=== PATIENT | male | born 1985 | race African-American/Black ===

== ENCOUNTER 2023-06-28 18:18 | Emergency (ER) | payer BC, SELFPAY ==
[2023-06-28 18:20] VITALS: BP 153/99; PULSE 69; RESP 20; TEMP 36.4; O2SAT 100
--- NOTE | 2023-06-28 18:31 | ED.GENADUL_ITS ---
Discharge Plan Disposition Patient Disposition: Home Condition: Stable Discharge Details Clinical Impression: Abdominal pain of unknown etiology Primary Care Provider: Unknown,Unknown ED Provider: Eb Egan Home Meds and New Rx's Prescriptions: No Action No Known Home Meds Discharge Instructions Instructions: Abdominal Pain (ED), Enteritis (ED) Additional Instructions: You were seen in the Emergency Department for your abdominal pain for the past couple days- Your exam is re-assuring and you have no focal tenderness. Your laboratory work-up shows no acute abnormality, no elevation of white blood cells- which means VERY LOW suspicion for any significant infection. Your markers of inflammation are negative, your kidney and liver and pancreas function is normal. I do not suspect we need a CT scan at today's visit with your re-assuring labs and physical exam. Please monitor your symptoms closely- likely you have a viral stomach illness which should resolve within 5-7 days. Please follow with primary care, I have placed you on a list to establish care with a regular doctor in the area that can handle non-Emergent issues. Take [id number] medicines like Tylenol and ibuprofen for pain/fever as needed. Return to the Emergency Department for any significant worsening abdominal pain, intractable nausea/vomiting, complete constipation, black/bloody stools, urinary retention, fever. Referrals: [facility] [Provider Group] [facility] [Provider Group] HPI General Date/Time Provider Initiated Documentation: 06/28/23 18:19 . HPI Narrative: 38 year-old male presents to ED today by POV/ambulating with a chief complaint of abdominal pain, with nausea, with onset Tuesday or Tuesday, possibly linked to food poisoning. Quality described as generalized abdominal cramping, fairly constant, but not tender when he pushes on his abdomen, no radiation to vomiting, flank pain, dysuria, diarrhea, black/bloody stools, fever, cough, shortness of breath, headache. Severity is described as mild to moderate. Palliating factors include nothing specific attempted- has been trying to stay hydrated, and not eat undercooked food. Provoking factors include nothing specific. Patient not anticoagulated. Related Data Home Medications Medication Instructions Recorded Confirmed Unknown [No Known Home Meds] 06/28/23 06/28/23 Allergies Allergy/AdvReac Type Severity Reaction Status Date / Time No Known Allergies Allergy Unverified 06/28/23 18:20 General Stated Complaint: Abd Prob CASIE: 3 Review of Systems All systems reviewed & are unremarkable except as noted in HPI and below Exam Narrative Exam Narrative: GENERAL APPEARANCE: Well-nourished, non-toxic, awake and alert, atraumatic, no acute distress. SKIN: Warm, pink, dry, intact, without rashes/lesions/ulcerations. HEAD: Normocephalic, atraumatic, normal hair distribution for gender/age. EYES: Pupils PERRLA, EOMs intact without nystagmus, normal conjunctiva, no exudates on lids/lashes. ENT: Nares patent, no circumoral cyanosis, no facial swelling NECK: Supple, trachea midline, painless cervical ROM. LUNGS/CHEST: Non-labored respirations, normal A/P diameter, symmetrical expansion, no chest wall deformity HEART (CV/PV): No peripheral edema, no JVD, L radial pulse 2+, regular rate. ABDOMEN: Soft, non-distended, no guarding, no focal tenderness to entire abdomen, no CVA tenderness to percussion. MSK: Normal ROM, no swelling/deformity to bilateral UEs or LEs, moving all extremities without weakness, no cyanosis, spine midline without tenderness, normal curvature. NEURO: Mental Status AAOx4 - alert to person, place, time, events No facial droop, no forehead involvement. Motor: No focal weakness - strength 5/5 in bilateral UEs and LEs, proximal and distal, symmetric. Sensory: sensation intact to light touch globally. Gait normal: patient ambulated without ataxia into ED room. PSYCH: euthymic, cooperative, pleasant, appropriate speech Course Vital Signs Vital signs: Vital Signs Temperature 36.4 C L 06/28/23 18:20 Pulse 69 06/28/23 18:20 Respiratory Rate 20 06/28/23 18:20 Blood Pressure 153/99 H 06/28/23 18:20 Pulse Oximetry 100 06/28/23 18:20 Temperature 36.4 C L 06/28/23 18:20 Pulse 69 06/28/23 18:20 Respiratory Rate 20 06/28/23 18:20 Blood Pressure 153/99 H 06/28/23 18:20 Pulse Oximetry 100 06/28/23 18:20 Oxygen Delivery Method Room Air 06/28/23 18:20 Oxygen Flow Rate 0 06/28/23 18:20 Pain Level 0 06/28/23 18:20 Medical Decision Making This dictation utilizes [id number] dictation software and may contain unedited grammatical errors. 38 y/o M presents to ED today with a chief complaint of abdominal pain, upset stomach, with nausea without vomiting- possibly had some bad food, denies fever, no focal tenderness when he palpates his own abdomen, denies bowel/urinary changes. Patient is passing gas, having regular BMs since onset on Tuesday/Tuesday. Patients' medical history: negative, otherwise healthy- denies prior abdominal surgeries. Family and social history: eats well, exercises regularly. Pertinent exam findings / vital signs include non-tender abdomen, stable vitals, no respiratory distress. Differential / pathologies of concern include gastroenteritis, diverticulitis, enteritis, gastritis, viral syndrome. Diagnostic studies of: -CBC, CMP, Lipase, Lactate, Magnesium, UA, CRP/ESR. -CBC shows no leukocytosis, no anemia -CMP benign, mild elev AST 45, just above normal -Lipase WNL -Lactate negative -Magnesium WNL -CRP/ESR negative -UA shows no UTI, no proteinuria Interventions of: -1L IV LR, 1g IV APAP, 15mg IV Ketorlac, 4mg IV Zofran. ED Course/Assessment/Plan: 38-year-old male presents with generalized abdominal pain since Tuesday or Tuesday, possibly food poisoning. The patient states he is nontender and demonstrates this by vigorously slapping himself and pressing on his belly all over without any pain. His laboratory workup is completely benign, do not suspect anything beyond possible food related viral gastroenteritis. I counseled him that he would likely improve, he felt better with Zofran and Tylenol and Toradol, I counseled him on [id number] acetaminophen and ibuprofen use for pain as needed and to stay well-hydrated. I did arrange for him to establish primary care in the area. Strict return criteria for any severe worsening of abdominal pain especially with fever, intractable nausea or vomiting. Findings not consistent with peritoneal abdomen, SBO, sepsis, colitis/diverticulitis- neg inflammatory markers, non-tender, no major electrolyte abnormalities. Disposition of Abdominal Pain of Unknown Etiology. Patient verbalized understanding of the plan and return to ED criteria and engaged in shared decision making. Lab Data Lab results reviewed: Yes I reviewed the patient's lab results. Labs: Laboratory Tests Range/Units 06/28/23 06/28/23 18:30 19:40 WBC (4.4-10.8) 10^3/uL 4.13 L RBC (4.36-5.78) 10^6/uL 4.94 Hgb (13.5-17.5) g/dL 15.4 Hct (40.0-50.0) % 45.3 MCV (80-95) fL 92 MCH (27.0-33.0) pg 31.2 MCHC (32.0-36.0) % 34.0 RDW (11.8-14.1) % 11.3 L Plt Count (130-400) 10^3/uL 235 MPV (8.0-11.0) fL 10.4 Immature Gran % 0.0 Neutrophils % 43.1 Lymphocytes % 39.7 Monocytes % 12.6 Eosinophils % 3.9 Basophils % 0.7 Nucleated RBC % (0.0-0.3) % 0.0 Absolute Neutrophils (1.2-6.7) 10^3/uL 1.78 Absolute Lymphocytes (1.2-3.4) 10^3/uL 1.64 Absolute Monocytes (0.1-0.8) 10^3/uL 0.52 Absolute Eosinophils (0.0-0.7) 10^3/uL 0.16 Absolute Basophils (0.0-0.2) 10^3/uL 0.03 ESR (0-15) mm/hr < 1 VBG Lactate (0.6-1.4) mmol/L 1.2 Sodium (136-145) mmol/L 141 Potassium (3.5-5.1) mmol/L 3.5 Chloride (98-107) mmol/L 104 Carbon Dioxide (21.0-32.0) mmol/L 31.0 Anion Gap (3-11) mmol/L 6.0 BUN (7-18) mg/dL 12 Creatinine (0.70-1.30) mg/dL 1.3 Est GFR (CKD-EPI 2020) (mL/min/1.73m2) 72.11 Glucose (74-106) mg/dL 104 Calcium (8.5-10.1) mg/dL 8.9 Magnesium (1.8-2.4) mg/dL 2.2 Total Bilirubin (0.2-1.0) mg/dL 0.9 AST (15-37) U/L 45 H ALT (16-63) U/L 49 Alkaline Phosphatase (46-116) U/L 73 C-Reactive Protein (<or=0.5) mg/dL < 0.50 Total Protein (6.4-8.2) g/dL 8.3 H Albumin (3.4-5.0) g/dL 4.4 Lipase (16-77) U/L 67 Urine Color (Yellow) Yellow Urine Clarity (Clear) Clear Urine pH (5-8) 7.5 Ur Specific [place] (1.005-1.025) 1.020 Urine Protein (Neg-Trace) mg/dL Negative Urine Ketones (Negative) mg/dL Negative Urine Blood (Negative) Negative Urine Nitrite (Negative) Negative Urine Bilirubin (Negative) Negative Urine Urobilinogen (Up to 0.2) mg/dL 0.2 Ur Leukocyte Esterase (Negative) Negative Urine Glucose (Negative) mg/dL Negative Quality:SDOH Health Related Social Needs: No Data to Display PFSH All Active Problems (Updated 06/28/23 @ 19:23 by MCKENZIE Corea) Abdominal pain of unknown etiology (Acute) Social History Smoking/Tobacco Use Status: Never Smoking risk assessment performed?: Yes Substance use type: does not use Housing: house Do you feel safe at home: Yes Do you feel safe in your relationship?: Yes
[2023-06-28 18:56] LABS: Lactate 1.2 mmol/L (0.6-1.4)
[2023-06-28 18:59] LABS: Absolute Basophil Count 0.03 10^3/uL (0.0-0.2); Absolute Eosinophil Count 0.16 10^3/uL (0.0-0.7); Absolute Lymphocyte Count 1.64 10^3/uL (1.2-3.4); Absolute Monocyte Count 0.52 10^3/uL (0.1-0.8); Absolute Neutrophil Count 1.78 10^3/uL (1.2-6.7); Basophils % 0.7; Eosinophils % 3.9; HCT 45.3 % (40.0-50.0); HGB 15.4 g/dL (13.5-17.5); Lymphocytes % 39.7; MCH 31.2 pg (27.0-33.0); MCV 92 fL (80-95); MPV 10.4 fL (8.0-11.0); Monocytes % 12.6; Neutrophils % 43.1; Platelet Count 235 10^3/uL (130-400); RBC 4.94 10^6/uL (4.36-5.78); RDW 11.3 % (11.8-14.1); WBC 4.13 10^3/uL (4.4-10.8)
[2023-06-28 19:01] LABS: ESR < 1 mm/hr (0-15)
[2023-06-28] MEDS: Ondansetron 4 MG/2 ML VIAL IVP (19:14)
[2023-06-28] MEDS: ACETAMINOPHEN 1,000 MG/100 ML BTL 400 MG IVPB (19:14)
[2023-06-28] MEDS: Ketorolac 15 MG/ML VIAL IVP (19:14)
[2023-06-28 19:15] LABS: ALT 49 U/L (16-63); AST 45 U/L (15-37); Albumin 4.4 g/dL (3.4-5.0); Alkaline Phosphatase 73 U/L (46-116); BUN 12 mg/dL (7-18); Bilirubin, Total 0.9 mg/dL (0.2-1.0); CREATININE 1.3 mg/dL (0.70-1.30); Calcium 8.9 mg/dL (8.5-10.1); Chloride 104 mmol/L (98-107); Estimated GFR 72.11 (mL/min/1.73m2); Glucose 104 mg/dL (74-106); Lipase 67 U/L (16-77); Magnesium 2.2 mg/dL (1.8-2.4); Potassium 3.5 mmol/L (3.5-5.1); Sodium 141 mmol/L (136-145); Total Protein 8.3 g/dL (6.4-8.2)
[2023-06-28] MEDS: Lactated Ringers 1,000 ML 1000 ML IV (19:15)
[2023-06-28 19:16] LABS: C-Reactive Protein < 0.50 mg/dL (<or=0.5)
[2023-06-28 20:00] LABS: Bilirubin Negative (Negative); Blood Negative (Negative); Clarity Clear (Clear); Glucose Negative (Negative); Ketones Negative (Negative); Leukocyte Esterase Negative (Negative); Nitrite Negative (Negative); Urobilinogen 0.2 mg/dL (Up to 0.2); pH 7.5 (5-8)
--- NOTE | 2023-06-28 22:59 | NUR.NOTE ---
Pt placed on care management referral list to establish primary care for pt to be seen as soon as possible per MCKENZIE Egan.
== END 2023-06-28 19:52 | disposition home or self-care (01) ==
LOC: ER 20:15
PROVIDERS: Emergency Provider Physician Assistant
DX: R10.9 Unspecified abdominal pain (principal); R11.2 Nausea with vomiting, unspecified
CPT/HCPCS: 80053; 83690; 85652; 96361; 96374; 96375; 99284; 81003; 83605; 83735; 85025; 86140; 99283; J0131; J1885; J2405

== ENCOUNTER 2023-07-14 16:39 | Outpatient (REF) | payer BC, SELFPAY ==
[2023-07-14 14:45] LABS: Abs Immature Grans 0.02 10^3/uL (0.0-0.06); Absolute Basophil Count 0.03 10^3/uL (0.0-0.2); Absolute Eosinophil Count 0.13 10^3/uL (0.0-0.7); Absolute Lymphocyte Count 1.08 10^3/uL (1.2-3.4); Absolute Neutrophil Count 1.59 10^3/uL (1.2-6.7); Basophils % 0.9; HCT 43.6 % (40.0-50.0); HGB 15.1 g/dL (13.5-17.5); Immature Grans % 0.6; Lymphocytes % 33.2; MCH 30.7 pg (27.0-33.0); MCHC 34.6 % (32.0-36.0); MCV 89 fL (80-95); MPV 11.5 fL (8.0-11.0); Monocytes % 12.3; Platelet Count 197 10^3/uL (130-400); RBC 4.92 10^6/uL (4.36-5.78); RDW 11.4 % (11.8-14.1); WBC 3.25 10^3/uL (4.4-10.8)
[2023-07-14 14:59] LABS: ALT 65 U/L (16-63); AST 32 U/L (15-37); Albumin 4.3 g/dL (3.4-5.0); Alkaline Phosphatase 71 U/L (46-116); Anion Gap 8.7 mmol/L (3-11); BUN 12 mg/dL (7-18); Bilirubin, Total 0.8 mg/dL (0.2-1.0); CO2 29.3 mmol/L (21.0-32.0); CREATININE 1.3 mg/dL (0.70-1.30); Calcium 9.5 mg/dL (8.5-10.1); Chloride 104 mmol/L (98-107); Estimated GFR 72.11 (mL/min/1.73m2); Glucose 89 mg/dL (74-106); Potassium 4.3 mmol/L (3.5-5.1); Sodium 142 mmol/L (136-145); Total Protein 7.7 g/dL (6.4-8.2)
[2023-07-19 13:09] LABS: Helicobacter pylori Ag, Feces Positive (Negative)
== END 2023-07-14 16:40 | disposition home or self-care (01) ==
LOC: NCHCN 16:39
PROVIDERS: Referring Provider Family Medicine; Visit Provider Family Medicine
DX: K29.70 Gastritis, unspecified, without bleeding (principal)
CPT/HCPCS: 80053; 87338; 85025

== ENCOUNTER 2024-02-24 16:11 | Outpatient (CLI) | payer BC, SELFPAY ==
--- OUTSIDE RECORDS SUMMARY | 2024-02-24 16:16 | XMS_ITS | Encounter Summary ---
Author Organization [facility] Address [facility] [place] [address] Care Team Providers Care Conventions Reservationist Name Role Phone Unavailable Primary Care Provider Unavailabl e Encounter Details Date Type Department Care Team (Latest Contact Info) Description 12/22/2023 Travel Social History Tobacco Use Types Packs/Day Years Used Date Smoking Tobacco: Never Assessed Sex and Gender Information Value Date Recorded Sex Assigned at Not on file Gender Identity Not on file Sexual Orientation Not on file documented as of this encounter Plan of Treatment Upcoming Encounters Date Type Department Care Team (Late st Contact Info) Description 03/26/2024 1:20 PM EST Office Visit Dermatology at [facility] [address] [place] [address] Konrad Brannon MD [facility] [address] [place] [address] documented as of this encounter Visit Diagnoses Not on filedocumented in this encounter
--- OUTSIDE RECORDS SUMMARY | 2024-02-24 16:16 | XMS_ITS | Clinical Summary ---
Author Organization [facility] Address [address] [place] [address] Care Team Providers Care Cash Processing Specialist Name Role Phone Unavailable Primary Care Provider Unavailabl e Social History Tobacco Use Types Packs/Day Years Used Date Smoking Tobacco: Never Assessed Sex and Gender Information Value Date Recorded Sex Assigned at Not on file Legal Sex Male 1:01 EDT Gender Identity Not on file Sexual Orientation Not on file Plan of Treatment Health Maintenance Due Date Last Done Comments Hepatitis C Screen 1985 Hepatitis B Vaccine (1 of 3 - 19+ 3-dose series) 03/10 COVID-19 Vaccine ( season) 2023
--- OUTSIDE RECORDS SUMMARY | 2024-02-24 16:16 | XMS_ITS | Encounter Summary ---
Author Organization [facility] Address [facility] [place] [address] Care Team Providers Care Math And Science Instructor Name Role Phone Unavailable Primary Care Provider Unavailabl e Reason for Visit * Consultation (Routine) - Closed Specialty Diagnoses / Procedures Referred By Contbrandon t Referred To Contact Dermatology Diagnoses Pruritus, unspecified Donovan Garcia MD [address] [place] [id number] [facility] [address] [place] [address] Referral ID Status Reason Start Date Expiration Date Visits Re quested Visits Authorized [id number] Closed 11/07/2023 11/06/2024 1 1 Encounter Details Date Type Department Care Team (Late st Contact Info) Description 12/22/2023 9:20 AM EDT Office Visit Dermatology at [facility] [address] [place] [address] Konrad Brannon MD [facility] [place] [address] Pruritus Social History Tobacco Use Types Packs/Day Years Used Date Smoking Tobacco: Never Assessed Sex and Gender Information Value Date Recorded Sex Assigned at Not on file Gender Identity Not on file Sexual Orientation Not on file documented as of this encounter Progress Notes * Konrad Brannon MD - 12/22/2023 9:20 AM EDT Images from the original note were not included. DEPARTMENT OF DERMATOLOGY Medical Dermatology Clinic Provider: Konrad Brannon MD Patient's preferred name Tristan Preferred contact method for results [x]Phone []myD-H []Letter Detailed phone message OK? Yes Are there any other people with whom we may discuss your care? PCP Past Medical History Date, location, treatment Melanoma N Dysplastic nevi N SCC N BCC N AKs N UV Exposure & Protection N Other relevant past medical history Family History Details Melanoma N NMSC N Other relevant family history N Social History Occupation: Hobbies: Other: PRE-PROCEDURE SCREENING Details Allergy to lidocaine, epinephrine, Dermabond, chlorhexidine, or adhesives N Bleeding disorder or blood thinners N Pacemaker, defibrillator, deep brain stimulator, cochlear implant N History of Present Illness: Tristan Velez is a 38 y.o. Patient is new and self- referred to the clinicfor Pruritus. Has been dealing with it since june from head to toe, is activated with heat. Tried an OTC anti histamine which didn't help. Brother is a doctor in [place] and suggested he uses Vaseline which has helped some. Going to a colder area also helps. Medications: Reviewed in eD-H Allergies: Reviewed in eD-H Skin Examination: Focused skin examination of the Trunk, extremities, and feet was normal with the exception of the findings below. Assessment/Plan #. Pruritus sans dermatitis - no overlying skin disease other than xerosis and no excoriatiosn - Patient endorses intense itching which impairs quality of life - Heat is main trigger but otherwise sporadic - Only improves with cold air - Discussed possible internal causes of pruritus, such as anemia, thyroid issues, lymphoma. Will check labs to rule these out. - Recommended AmLactin Rapid Relief lotion twice daily. - Consider Gabapentin in the future - Lab orders today: CBC, CMP, TSH Seborrheic dermatitis - hyperpigmented patches on the bilateral cheeks and nasolabial folds. -asymptomatic -advised this is a chronic condition 2nd to [place] that can be controlled. If worsens or becomes more symptomatic can offer alternative treatments RX:Amlactin as above Other: OTC skin products discussed RTC: 2-3 mo f/u pending labs []Note routed to casing runner []Recall placed in scheduling system []Appointment scheduled at checkout Scribe attestation: DEYA Spivey has performed the documentation for this encounter in the presence of and acting as a scribe for Konrad Brannon MD. I performed the above scribed service and agree with the accuracy of the documentation in this encounter. Reviewed and signed by: Konrad Brannon MD Dermatology [facility] Patient seen and evaluated with staff otr owner operator truck driver: Mabel Govea MD Dermatology [facility] * Konrad Brannon MD - 12/22/2023 9:20 AM EDT I discussed results of laboratory testing with Tristan over the phone. CBC and CMP within normal limits. TSH normal as well. Likely related to xerosis. Discussed AmLactin 12% lotion which can be used twice daily for maintenance of the skin barrier. Planned follow-up 03/26/24. Encouraged to call if anyquestions arise * Mabel Govea MD - 12/22/2023 9:20 AM EDT I directly supervised Konrad Brannon MD in the care of this Dermatology patient in person. I saw and evaluated this patient with Konrad Brannon MD. Konrad Brannon MD presented the history and physical exam details to me, then we saw the patient together, and I confirmed these findings. I agree with details as written. My physical examination confirms Konrad Brannon MD's findings. The assessment and plan were formulated in discussion with me at the time of visit, and I agree with them as documented. Mabel Govea MD Staff Freight Service Inspector Department of Dermatology [facility] documented in this encounter Plan of Treatment Upcoming Encounters Date Type Department Care Team (Late st Contact Info) Description 03/26/2024 1:20 PM EST Office Visit Dermatology at [address] [place] [address] Konrad Brannon MD [facility] [address] [address] documented as of this encounter Procedures Procedure Name Priority Date/Time Associated Diagnosis Comments CBC (WITH DIFF) Routine 12/22/2023 10:33 AM EDT Pruritus TSH Routine 12/22/2023 10:33 AM EDT Pruritus COMPREHENSIVE METABOLIC PANEL Routine 12/22/2023 10:33 AM EDT Pruritus documented in this encounter Results * TSH (12/22/2023 10:33 AM EDT) Pathologist [facility] Thyroid Stimulating Hormone 1.12 0.27 - 4.20 mcIU/mL 12/22/2023 2:06 PM EDT [facility] Blood VENOUS BLOOD SPECIMEN / Unknown Venipuncture / Unknown 12/22/2023 10:33 AM EDT 12/22/2023 10:33 AM EDT Mabel Govea MD CHEMISTRY ORDERABLES [facility] [place] [address] * Comprehensive metabolic panel Non-fasting (12/22/2023 10:33 AM EDT) Glucose 99 65 - 199 mg/dL 12/22/2023 2:06 PM EDT [facility] Comment:Glucose Concentratio n >=200 mg/dL plus symptoms is consistent with Diabetes Mellitus. Blood Urea Nitrogen 13 10 - 20 mg/dL 12/22/2023 2:06 PM EDT [facility] Creatinine 1.35 0.80 - 1.50 mg/dL 12/22/2023 2:06 PM EDT [facility] Sodium 137 135 - 145 mMol/L 12/22/2023 2:06 PM [facility] Potassium 4.5 3.5 - 5.0 mMol/L 12/22/2023 2:06 PM [facility] Chloride 101 98 - 107 mMol/L 12/22/2023 2:06 PM [facility] Carbon Dioxide 27 22 - 31 mMol/L 12/22/2023 2:06 PM [facility] Anion Gap 9 5 - 15 mMol/L 12/22/2023 2:06 PM [facility] Calcium 9.7 8.5 - 10.5 mg/dL 12/22/2023 2:06 PM [facility] Protein, Total 8.0 6.1 - 8.0 g/dL 12/22/2023 2:06 PM [facility] Albumin 5.0 3.2 - 5.2 g/dL 12/22/2023 2:06 PM [facility] Aspartate Aminotransferase 36 <=39 unit/L 12/22/2023 2:06 PM [facility] Alanine Aminotransferase 46 0 - 55 unit/L 12/22/2023 2:06 PM [facility] Alkaline Phosphatase 63 40 - 130 unit/L 12/22/2023 2:06 PM [facility] Bilirubin, Total 0.8 <=1.3 mg/dL 12/22/2023 2:06 PM [facility] Est Glomerular Filtration Rate - Male 69 mL/min/1. 73 m?? 12/22/2023 2:06 PM [facility] Comment: This patient's estimated GFR was calculated using the 2020 CKD-EPI equation. The estimated GFR can vary from the measured GFR by up to 30% in the absence of rapidly changing kidney function. Assessment of the estimated GFR is not appropriate when creatinine concentrations are rapidly changing. For clinical situations in which a more precise estimate of GFR is necessary, consider alternative methods of GFR estimation such as a 24-hour urine creatinine clearance. Assignment of CKD stage 1 - 5 for patients with an eGFR near the transition point between stages may be based on clinical assessment of muscle mass and symptoms in addition to eGFR. Link: eGFR Calculator [employer] Fasting Status No 12/22/2023 2:06 PM EDT [facility] Blood VENOUS BLOOD SPECIMEN / Unknown Venipuncture / Unknown 12/22/2023 10:33 AM EDT 12/22/2023 10:33 AM EDT Mabel Govea MD CHEMISTRY ORDERABLES [facility] [place] [address] * (ABNORMAL) CBC (with Diff) (12/22/2023 10:33 AM EDT) White Blood Cell 3.91(L) 4.00 - 9.50 x10(3)/mc L 12/22/2023 1:40 PM EDT [facility] Red Blood Cell 4.96 4.58 - 5.54 x10(6)/mc L 12/22/2023 1:40 PM EDT [facility] Hemoglobin 15.3 13.7 - 16.5 g/dL 12/22/2023 1:40 PM EDT [facility] Hematocrit 45.5 40.5 - 48.5 % 12/22/2023 1:40 PM EDT [facility] Mean Cell Volume 91.7 82.9 - 93.1 fL 12/22/2023 1:40 PM EDT [facility] Mean Cell Hemoglobin 30.8 27.5 - 32.1 pg 12/22/2023 1:40 PM EDT [facility] Mean Cell Hemoglobin Concentration 33.6 32.0 - 35.7 g/dL 12/22/2023 1:40 PM EDT [facility] Platelet 210 145 - 357 x10(3)/mc L 12/22/2023 1:40 PM EDT [facility] Mean Platelet Volume 11.2 7.6 - 12.9 fL 12/22/2023 1:40 PM EDT [facility] RDW Standard Deviation 39.5 36.0 - 45.0 fL 12/22/2023 1:40 PM [facility] RDW coefficient of variation 11.8 11.4 - 13.8 % 12/22/2023 1:40 PM [facility] NRBC% auto 0.0 % 12/22/2023 1:40 PM [facility] NRBC Absolute 0.00 0.00 - 0.00 x10(3)/mc L 12/22/2023 1:[facility] Neutrophil % 51.9 % 12/22/2023 1:40 PM [facility] Neutrophil Absolute (ANC) - Automated 2.03 1.70 - 6.10 x10(3)/mc L 12/22/2023 1:40 PM [facility] Lymph % 30.9 % 12/22/2023 1:40 PM [facility] Lymph Absolute 1.21 0.90 - 3.20 x10(3)/mc L 12/22/2023 1:40 PM [facility] Monocyte % 12.3 % 12/22/2023 1:40 PM [facility] Monocyte Absolute 0.48 0.30 - 0.90 x10(3)/mc L 12/22/2023 1:40 PM [facility] Eos % 3.8 % 12/22/2023 1:40 PM [facility] Eos Absolute 0.15 0.00 - 0.40 x10(3)/mc L 12/22/2023 1:40 PM [facility] Basophil % 0.8 % 12/22/2023 1:40 PM [facility] Baso Absolute 0.03 0.00 - 0.10 x10(3)/mc L 12/22/2023 1:40 PM [facility] Immature Gran % 0.3 % 1:40 PM [facility] Immature Gran Absolute 0.01 0.00 - 0.04 x10(3)/mc L 12/22/2023 1:40 PM EDT [facility] Blood VENOUS BLOOD SPECIMEN / Unknown Venipuncture / Unknown 12/22/2023 10:33 AM EDT 12/22/2023 10:33 AM EDT Mabel Govea MD HEMATOLOGY ORDERABLE S [facility] [place] [address] documented in this encounter Visit Diagnoses Diagnosis Pruritus Unspecified pruritic disorder documented in this encounter
--- OUTSIDE RECORDS SUMMARY | 2024-02-24 16:17 | XMS_ITS | Referral Summary ---
Author Organization [facility] Address [address] [place] [address] Care Team Providers Care Air Marshal Name Role Phone Unavailable Primary Care Provider Unavailabl e Social History Tobacco Use Types Packs/Day Years Used Date Smoking Tobacco: Never Assessed Sex and Gender Information Value Date Recorded Sex Assigned at Not on file Legal Sex Male 1:01 EDT Gender Identity Not on file Sexual Orientation Not on file Plan of Treatment Not on file
--- OUTSIDE RECORDS SUMMARY | 2024-02-24 16:17 | XMS_ITS | Encounter Summary ---
Author Organization [facility] Address [address] [place] [address] Care Team Providers Care Construction Helper Name Role Phone Unavailable Primary Care Provider Unavailabl e Encounter Details Date Type Department Care Team (Late st Contact Info) Description 07/15/2023 Lab Requisition [facility] Pathology & Laboratory Medicine - [facility] [address], [place] [id number] Outr Resulting Lab, Provider Social History Tobacco Use Types Packs/Day Years Used Date Smoking Tobacco: Never Assessed Sex and Gender Information Value Date Recorded Sex Assigned at Not on file Legal Sex Male 1:01 EDT Gender Identity Not on file Sexual Orientation Not on file documented as of this encounter Plan of Treatment Not on file documented as of this encounter Procedures Procedure Name Priority Date/Time Associated Diagnosis Comments H. PYLORI ANTIGEN Routine 07/14/2023 14: 23 EDT documented in this encounter Results * (ABNORMAL) H. PYLORI ANTIGEN (07/14/2023 14:23 EDT) H. Pylori Positive( A) Negative 07/19/2023 13:05 EDT [facility] Comment:Indicates the presen ce of detectable H. pylori stool antigen. Feces SPECIMEN FROM RECTUM / Unknown 07/14/2023 14:23 EDT 07/15/2023 17:06 EDT Narrative [facility] - 07/19/2023 13:05 EDT New Liaison XL testing method used as of 01/31/2023 us Provider Outr Resulting Lab MICROBIOLOGY - GENER AL ORDERABLES Final Result [facility] [address] [place] [address] documented in this encounter Visit Diagnoses Not on filedocumented in this encounter
[2024-02-28 16:09] LABS: Cat Epithelium IgE <0.10 kU/L (<0.70); Cladosporium IgE <0.10 kU/L (<0.70); Dog Dander IgE <0.10 kU/L (<0.70)
[2024-02-28 17:22] LABS: Alternaria Tenuis IgE <0.10 kU/L (<0.70); Aspergillus Fumigatus IgE <0.10 kU/L (<0.70); Bermuda Grass IgE <0.10 kU/L (<0.70); Cocklebur IgE <0.10 kU/L (<0.70); Cockroach IgE <0.10 kU/L (<0.70); Cottonwood IgE <0.10 kU/L (<0.70); D Farinae IgE <0.10 kU/L (<0.70); D Pteronyssinus IgE <0.10 kU/L (<0.70); Eastern Sycamore IgE <0.10 kU/L (<0.70); Elm IgE <0.10 kU/L (<0.70); Epicoccum purpurascens IgE <0.10 kU/L (<0.70); Fusarium moniliforme, IgE <0.10 kU/L (<0.70); Giant Ragweed IgE <0.10 kU/L (<0.70); Lamb's Quarter IgE <0.10 kU/L (<0.70); Oak IgE <0.10 kU/L (<0.70); Penicillium chrysogenum IgE <0.10 kU/L (<0.70); Red Sorrel IgE <0.10 kU/L (<0.70); Rough Pigweed IgE <0.10 kU/L (<0.70); Short Ragweed IgE <0.10 kU/L (<0.70); Silver Birch IgE <0.10 kU/L (<0.70); Stemphyllium IgE <0.10 kU/L (<0.70); Timothy Grass IgE <0.10 kU/L (<0.70); Walnut Tree IgE <0.10 kU/L (<0.70); Wormwood IgE <0.10 kU/L (<0.70)
[2024-03-01 17:23] LABS: CLASS 0; Cedar Red IgE <0.10 kU/L (<0.35); Rhodotorula IgE <0.35 kU/L (<0.35)
== END 2024-02-24 16:12 | disposition home or self-care (01) ==
LOC: LBO 16:12
PROVIDERS: Visit Provider Otolaryngology Otolaryngology/Facial Plastic Surgery
DX: L50.2 Urticaria due to cold and heat (principal); L29.9 Pruritus, unspecified; Z86.19 Personal history of other infectious and parasitic diseases; K29.80 Duodenitis without bleeding; B96.81 Helicobacter pylori [H. pylori] as the cause of diseases classified elsewhere; L85.3 Xerosis cutis
CPT/HCPCS: 36415; 86003

== ENCOUNTER 2024-07-12 10:50 | Outpatient (REF) | payer BC, SELFPAY ==
[2024-07-12 14:49] LABS: Abs Immature Grans 0.01 10^3/uL (0.0-0.06); Absolute Basophil Count 0.02 10^3/uL (0.0-0.2); Absolute Eosinophil Count 0.13 10^3/uL (0.0-0.7); Absolute Lymphocyte Count 1.29 10^3/uL (1.2-3.4); Absolute Monocyte Count 0.38 10^3/uL (0.1-0.8); Absolute Neutrophil Count 1.67 10^3/uL (1.2-6.7); Basophils % 0.6 %; Eosinophils % 3.7 %; HCT 44.1 % (40.0-50.0); HGB 15.1 g/dL (13.5-17.5); Immature Grans % 0.3 %; Lymphocytes % 36.9 %; MCH 30.3 pg (27.0-33.0); MCHC 34.2 % (32.0-36.0); MCV 89 fL (80-95); MPV 11.3 fL (8.0-11.0); Monocytes % 10.9 %; Neutrophils % 47.6 %; Platelet Count 194 10^3/uL (130-400); RBC 4.98 10^6/uL (4.36-5.78); RDW 11.7 % (11.8-14.1); RDW-SD 37.6 fL
[2024-07-12 16:10] LABS: ALT 100 U/L (16-63); AST 45 U/L (15-37); Albumin 4.2 g/dL (3.4-5.0); Alkaline Phosphatase 58 U/L (46-116); Anion Gap 9.8 mmol/L (3-11); BUN 13 mg/dL (7-18); Bilirubin, Total 0.7 mg/dL (0.2-1.0); CO2 27.2 mmol/L (21.0-32.0); CREATININE 1.4 mg/dL (0.70-1.30); Calcium 9.3 mg/dL (8.5-10.1); Chloride 104 mmol/L (98-107); Estimated GFR 65.57 (mL/min/1.73m2); Glucose 94 mg/dL (74-106); Potassium 4.4 mmol/L (3.5-5.1); Sodium 141 mmol/L (136-145); Total Protein 7.8 g/dL (6.4-8.2)
[2024-07-16 15:09] LABS: Cryptosporidium, F Negative (Negative); Giardia Ag, F Negative (Negative)
[2024-07-16 16:34] LABS: IgA 159 mg/dL (85-499); Interpretation (See Note); Tissue Transglutaminase IgA <4.0 CU (<20.0)
== END 2024-07-12 10:51 | disposition home or self-care (01) ==
LOC: NCHCN 10:50
PROVIDERS: Visit Provider Family Medicine
DX: K52.9 Noninfective gastroenteritis and colitis, unspecified (principal)
CPT/HCPCS: 80053; 82784; 83516; 87328; 87329; 83630; 85025; 87177